=== PATIENT | male | born 1930 | race Caucasian/White ===

== ENCOUNTER 2016-07-28 14:38 | Inpatient (IN) | payer MEDICARE, BC ==
[2016-07-28 13:32] LABS: ABG CO2 ARTERIAL 23 mmol/L (21-27); ARTERIAL BLD GAS O2 SATURATION 89 % (95-98); ARTERIAL BLOOD GAS PCO2 31 mmHg (32-45); ARTERIAL PO2 52 mmHg (70-100); BICARBONATE 22 mmol/L (21-28); BLOOD GAS BASE EXCESS -1 mM/L (-/+3); PH 7.46 Units (7.35-7.45)
[2016-07-28 13:55] LABS: URINE LEUKOCYTE ESTERASE NEGATIVE (NEG)
[2016-07-28 13:56] LABS: URINE APPEARANCE CLEAR; URINE BILIRUBIN NEGATIVE (NEG); URINE BLOOD NEGATIVE (NEG); URINE COLOR YELLOW; URINE GLUCOSE (UA) MODERATE (NEG); URINE KETONE NEGATIVE (NEG); URINE NITRITE NEGATIVE (NEG); URINE SPECIFIC GRAVITY 1.018 (1.003-1.030)
[2016-07-28 13:57] LABS: BASO % 0.4 % (0-2); EOS % 2.2 % (0-7); EOSINOPHIL ABSOLUTE COUNT 0.2 tho/cmm (0.0-0.7); HCT-HEMATOCRIT 38.5 % (36.0-53.5); HGB-HEMOGLOBIN 12.4 gm/dl (13.5-17.0); IMMATURE GRANULOCYTES ABSOLUTE 0.03 tho/cmm (0-0.03); IMMATURE GRANULOCYTES PERCENT 0.4 % (0-0.3); LYMPH % 10.5 % (20-45); LYMPH ABSOLUTE COUNT 0.8 tho/cmm (0.8-4.5); MCH (MEAN CORPUSCULAR HGB) 31.7 pg (28.0-32.0); MCHC MEAN CORPUSCULAR HGB CONC 32.2 % (32.0-36.0); MCV (MEAN CELL VOLUME) 98.5 fl (82.0-96.0); MEAN PLATELET VOLUME 11.7 cmc (9.4-12.4); MONO % 13.3 % (0-12); NEUTROPHIL ABSOLUTE COUNT 5.5 tho/cmm (1.6-8.0); NEUTROPHIL-AUTOMATED 5.5 tho/cmm (1.6-8.0); NEUTROPHILS % 73.2 % (40-80); PLATELET COUNT 147 tho/cmm (150-450); RED BLOOD COUNT 3.91 mil/cmm (4.40-5.70); RED CELL DISTRIBUTION WIDTH 13.7 % (12.4-16.4); WHITE BLOOD COUNT 7.4 tho/cmm (4.0-10.0)
[2016-07-28 14:02] LABS: INR 2.4 INR (0.9-1.1); PROTHROMBIN TIME 28.4 SECONDS (9.0-13.6)
[2016-07-28 14:04] LABS: URINE PROT SULFOSALICYLIC ACID NEGATIVE (NEG)
[2016-07-28 14:14] LABS: ALB/GLOB RATIO 0.8 (0.8-2.0); ALBUMIN 3.6 g/dl (3.5-5.0); ALKALINE PHOSPHATASE 68 U/L (33-138); ALT/SGPT 22 U/L (12-78); ANION GAP 14 mmol/L (0-20); AST/SGOT 18 U/L (10-40); BILIRUBIN,TOTAL 0.5 mg/dl (0.0-1.5); BLOOD UREA NITROGEN 40 mg/dl (6-24); CALCIUM 9.4 mg/dl (8.5-10.5); CARBON DIOXIDE-VENOUS 27 mmol/L (22-32); CHLORIDE 109 mmol/l (96-110); CREATININE 2.15 mg/dl (0.60-1.30); GLUCOSE 256 mg/dL (70-110); POTASSIUM 4.9 mmol/L (3.7-5.1); SODIUM 145 mmol/L (135-145); eGFR VALUE FOR BLACK 36 mL/Min
[2016-07-28 14:35] LABS: PROCALCITONIN <0.05 ng/ml (0.05-0.09)
[~2016-07-28 14:38] MED LIST: ACETAMINOPHEN500 M5 PO; ADVAIR 50028 BLISTE1 PO; ALDACTONE25 M1 PO; ARICEPT10 M2 PO; ASPIR 8181 M1 PO; ATENOLOL25 MG; BUSPAR5 MG PO; BUSPIRONE HCL7.5 M1 PO; BYSTOLIC5 M1 PO; CEFDINIR300 M1 PO; CLARITIN10 MG; COUMADIN5 M2 PO; COUMADIN5 MG; COZAAR50 MG; DEMADEX20 M1 PO; DEMADEX20 MG; FEROSUL325 MG PO; FISH OIL; FISH OIL 1,2001 EAC5 PO; FLOMAX0.4 M1 PO; HUMALOG100 U/ML; HUMALOG100 UNIT/1 SC; HYDRALAZINE HCL50 M1 PO; IMDUR30 MG; IPRAT-ALBUT 0.5-3 ML INH; ISOSORBIDE MONO30 M4 PO; LANTUS SOL100 UNIT/1 SC; LORTAB 5-500 T1 EAC1 PO; LORTAB 5/5001 EA PO; LYRICA50 MG/CAP PO; MAXAIR AUTOHALE14 GM; NIZORAL120 M1 TP; NORVASC2.5 MG; POTASSIUM CHLO20 ME3 PO; PRILOSEC; PRILOSEC OTC20 M1 PO; PROSCAR5 M1 PO; PROSCAR5 MG; SENIOR TABS1 EACH PO; SENOKOT8.6 MG PO; STOOL SOFTENER100 M2 PO; TORSEMIDE20 M1 PO; TRAMADOL-ACETA1 EAC1 PO; ULTRAM; ULTRAM50 MG PO; VENTOLIN HFA18 G2 PO; VITAMIN D31000 UNI3 PO; ZAROXOLYN5 MG; ZOCOR20 M1 PO; ZOCOR40 MG; ZYRTEC10 M3 PO
[2016-07-28 16:13] LABS: ABG CO2 ARTERIAL 24 mmol/L (21-27); ARTERIAL BLD GAS O2 SATURATION 93 % (95-98); ARTERIAL BLOOD GAS PCO2 34 mmHg (32-45); BICARBONATE 23 mmol/L (21-28); BLOOD GAS BASE EXCESS 0 mM/L (-/+3); PH 7.45 Units (7.35-7.45)
[2016-07-28 16:14] LABS: ARTERIAL PO2 62 mmHg (70-100)
[2016-07-29 06:05] LABS: HCT-HEMATOCRIT 36.8 % (36.0-53.5); HGB-HEMOGLOBIN 11.9 gm/dl (13.5-17.0); IMMATURE GRANULOCYTES ABSOLUTE 0.01 tho/cmm (0-0.03); IMMATURE GRANULOCYTES PERCENT 0.2 % (0-0.3); LYMPH % 12.3 % (20-45); LYMPH ABSOLUTE COUNT 0.7 tho/cmm (0.8-4.5); MCH (MEAN CORPUSCULAR HGB) 31.5 pg (28.0-32.0); MCHC MEAN CORPUSCULAR HGB CONC 32.3 % (32.0-36.0); MCV (MEAN CELL VOLUME) 97.4 fl (82.0-96.0); MEAN PLATELET VOLUME 11.3 cmc (9.4-12.4); MONOCYTE ABSOLUTE COUNT 0.1 tho/cmm (0.0-1.2); NEUTROPHIL ABSOLUTE COUNT 5.1 tho/cmm (1.6-8.0); NEUTROPHIL-AUTOMATED 5.1 tho/cmm (1.6-8.0); NEUTROPHILS % 85.5 % (40-80); PLATELET COUNT 145 tho/cmm (150-450); RED BLOOD COUNT 3.78 mil/cmm (4.40-5.70); RED CELL DISTRIBUTION WIDTH 13.6 % (12.4-16.4)
[2016-07-29 06:21] LABS: INR 2.2 INR (0.9-1.1); PROTHROMBIN TIME 25.6 SECONDS (9.0-13.6)
[2016-07-29 06:26] LABS: ALB/GLOB RATIO 0.7 (0.8-2.0); ALBUMIN 3.1 g/dl (3.5-5.0); ALKALINE PHOSPHATASE 55 U/L (33-138); ALT/SGPT 17 U/L (12-78); ANION GAP 13 mmol/L (0-20); AST/SGOT 16 U/L (10-40); BILIRUBIN,TOTAL 0.4 mg/dl (0.0-1.5); BLOOD UREA NITROGEN 43 mg/dl (6-24); CARBON DIOXIDE-VENOUS 26 mmol/L (22-32); CHLORIDE 110 mmol/l (96-110); CREATININE 2.11 mg/dl (0.60-1.30); GLUCOSE 256 mg/dL (70-110); POTASSIUM 4.3 mmol/L (3.7-5.1); SODIUM 145 mmol/L (135-145); eGFR VALUE FOR BLACK 36 mL/Min
[2016-07-30 06:32] LABS: BASO % 0.1 % (0-2); IMMATURE GRANULOCYTES ABSOLUTE 0.02 tho/cmm (0-0.03); IMMATURE GRANULOCYTES PERCENT 0.2 % (0-0.3); LYMPH % 7.4 % (20-45); LYMPH ABSOLUTE COUNT 0.8 tho/cmm (0.8-4.5); MCH (MEAN CORPUSCULAR HGB) 31.7 pg (28.0-32.0); MCHC MEAN CORPUSCULAR HGB CONC 32.4 % (32.0-36.0); MCV (MEAN CELL VOLUME) 97.6 fl (82.0-96.0); MEAN PLATELET VOLUME 11.9 cmc (9.4-12.4); MONOCYTE ABSOLUTE COUNT 0.7 tho/cmm (0.0-1.2); NEUTROPHIL ABSOLUTE COUNT 9.7 tho/cmm (1.6-8.0); NEUTROPHIL-AUTOMATED 9.7 tho/cmm (1.6-8.0); NEUTROPHILS % 86.3 % (40-80); PLATELET COUNT 143 tho/cmm (150-450); RED BLOOD COUNT 3.79 mil/cmm (4.40-5.70); RED CELL DISTRIBUTION WIDTH 13.5 % (12.4-16.4)
[2016-07-30 06:41] LABS: INR 2.1 INR (0.9-1.1); PROTHROMBIN TIME 25.2 SECONDS (9.0-13.6)
[2016-07-30 06:44] LABS: ALB/GLOB RATIO 0.6 (0.8-2.0); ALBUMIN 2.9 g/dl (3.5-5.0); ALKALINE PHOSPHATASE 73 U/L (33-138); ALT/SGPT 17 U/L (12-78); ANION GAP 16 mmol/L (0-20); AST/SGOT 19 U/L (10-40); BILIRUBIN,TOTAL 0.2 mg/dl (0.0-1.5); CALCIUM 8.4 mg/dl (8.5-10.5); CARBON DIOXIDE-VENOUS 24 mmol/L (22-32); CHLORIDE 104 mmol/l (96-110); MAGNESIUM 2.6 mg/dl (1.3-2.6); POTASSIUM 4.6 mmol/L (3.7-5.1); SODIUM 139 mmol/L (135-145); eGFR VALUE FOR BLACK 26 mL/Min
[2016-07-30 07:03] LABS: WHITE BLOOD COUNT 11.2 tho/cmm (4.0-10.0)
[2016-07-30 07:06] LABS: BLOOD UREA NITROGEN 77 mg/dl (6-24); CREATININE 2.82 mg/dl (0.60-1.30); GLUCOSE 397 mg/dL (70-110)
[2016-07-31 05:22] LABS: HCT-HEMATOCRIT 35.4 % (36.0-53.5); HGB-HEMOGLOBIN 11.7 gm/dl (13.5-17.0); IMMATURE GRANULOCYTES ABSOLUTE 0.02 tho/cmm (0-0.03); IMMATURE GRANULOCYTES PERCENT 0.2 % (0-0.3); LYMPH % 6.1 % (20-45); LYMPH ABSOLUTE COUNT 0.7 tho/cmm (0.8-4.5); MCH (MEAN CORPUSCULAR HGB) 31.6 pg (28.0-32.0); MCHC MEAN CORPUSCULAR HGB CONC 33.1 % (32.0-36.0); MCV (MEAN CELL VOLUME) 95.7 fl (82.0-96.0); MEAN PLATELET VOLUME 11.4 cmc (9.4-12.4); MONO % 5.5 % (0-12); MONOCYTE ABSOLUTE COUNT 0.7 tho/cmm (0.0-1.2); NEUTROPHIL ABSOLUTE COUNT 10.5 tho/cmm (1.6-8.0); NEUTROPHIL-AUTOMATED 10.5 tho/cmm (1.6-8.0); NEUTROPHILS % 88.2 % (40-80); PLATELET COUNT 151 tho/cmm (150-450); RED CELL DISTRIBUTION WIDTH 13.4 % (12.4-16.4); WHITE BLOOD COUNT 11.9 tho/cmm (4.0-10.0)
[2016-07-31 05:27] LABS: INR 2.6 INR (0.9-1.1); PROTHROMBIN TIME 31.5 SECONDS (9.0-13.6)
[2016-07-31 05:40] LABS: ALB/GLOB RATIO 0.7 (0.8-2.0); ALBUMIN 3.1 g/dl (3.5-5.0); ALKALINE PHOSPHATASE 64 U/L (33-138); ALT/SGPT 21 U/L (12-78); ANION GAP 15 mmol/L (0-20); AST/SGOT 16 U/L (10-40); BILIRUBIN,TOTAL 0.3 mg/dl (0.0-1.5); BLOOD UREA NITROGEN 84 mg/dl (6-24); CALCIUM 8.4 mg/dl (8.5-10.5); CARBON DIOXIDE-VENOUS 26 mmol/L (22-32); CHLORIDE 104 mmol/l (96-110); CREATININE 2.72 mg/dl (0.60-1.30); GLUCOSE 308 mg/dL (70-110); POTASSIUM 4.6 mmol/L (3.7-5.1); SODIUM 140 mmol/L (135-145); eGFR VALUE FOR BLACK 27 mL/Min
[2016-08-01 05:31] LABS: PROTHROMBIN TIME 35.8 SECONDS (9.0-13.6)
[2016-08-01 05:48] LABS: ALB/GLOB RATIO 0.7 (0.8-2.0); ALBUMIN 3.1 g/dl (3.5-5.0); ALKALINE PHOSPHATASE 69 U/L (33-138); ALT/SGPT 23 U/L (12-78); ANION GAP 14 mmol/L (0-20); AST/SGOT 10 U/L (10-40); BILIRUBIN,TOTAL 0.3 mg/dl (0.0-1.5); BLOOD UREA NITROGEN 86 mg/dl (6-24); CALCIUM 8.8 mg/dl (8.5-10.5); CARBON DIOXIDE-VENOUS 27 mmol/L (22-32); CHLORIDE 106 mmol/l (96-110); CREATININE 2.61 mg/dl (0.60-1.30); GLUCOSE 340 mg/dL (70-110); POTASSIUM 4.7 mmol/L (3.7-5.1); SODIUM 142 mmol/L (135-145); eGFR VALUE FOR BLACK 28 mL/Min
[2016-08-02 05:43] LABS: INR 3.1 INR (0.9-1.1); PROTHROMBIN TIME 37.6 SECONDS (9.0-13.6)
[2016-08-02 12:55] LABS: ANION GAP 15 mmol/L (0-20); BLOOD UREA NITROGEN 88 mg/dl (6-24); CALCIUM 8.4 mg/dl (8.5-10.5); CARBON DIOXIDE-VENOUS 27 mmol/L (22-32); CHLORIDE 101 mmol/l (96-110); CREATININE 2.57 mg/dl (0.60-1.30); GLUCOSE 425 mg/dL (70-110); POTASSIUM 4.4 mmol/L (3.7-5.1); SODIUM 139 mmol/L (135-145); eGFR VALUE FOR BLACK 29 mL/Min
[2016-08-03 05:41] LABS: BASO % 0.1 % (0-2); HCT-HEMATOCRIT 39.1 % (36.0-53.5); HGB-HEMOGLOBIN 12.9 gm/dl (13.5-17.0); IMMATURE GRANULOCYTES ABSOLUTE 0.05 tho/cmm (0-0.03); IMMATURE GRANULOCYTES PERCENT 0.4 % (0-0.3); LYMPH % 7.6 % (20-45); LYMPH ABSOLUTE COUNT 0.9 tho/cmm (0.8-4.5); MCH (MEAN CORPUSCULAR HGB) 31.5 pg (28.0-32.0); MCV (MEAN CELL VOLUME) 95.4 fl (82.0-96.0); MONO % 7.8 % (0-12); MONOCYTE ABSOLUTE COUNT 0.9 tho/cmm (0.0-1.2); NEUTROPHIL ABSOLUTE COUNT 9.8 tho/cmm (1.6-8.0); NEUTROPHIL-AUTOMATED 9.8 tho/cmm (1.6-8.0); NEUTROPHILS % 84.1 % (40-80); PLATELET COUNT 156 tho/cmm (150-450); RED CELL DISTRIBUTION WIDTH 13.3 % (12.4-16.4); WHITE BLOOD COUNT 11.7 tho/cmm (4.0-10.0)
[2016-08-03 05:41] LABS: INR 2.9 INR (0.9-1.1); PROTHROMBIN TIME 35.2 SECONDS (9.0-13.6)
[2016-08-03 06:33] LABS: ANION GAP 13 mmol/L (0-20); BLOOD UREA NITROGEN 90 mg/dl (6-24); CALCIUM 8.3 mg/dl (8.5-10.5); CARBON DIOXIDE-VENOUS 27 mmol/L (22-32); CHLORIDE 103 mmol/l (96-110); CREATININE 2.33 mg/dl (0.60-1.30); GLUCOSE 288 mg/dL (70-110); POTASSIUM 4.3 mmol/L (3.7-5.1); SODIUM 139 mmol/L (135-145); eGFR VALUE FOR BLACK 32 mL/Min
[2016-08-03] MEDS ORDERED: PREDNISONE10 M1 PO (16:18)
[2016-08-03] MEDS ORDERED: TYLENOL325 M2 PO ×2 (16:20→16:21)
[2016-08-03] MEDS ORDERED: MUCINEX600 M1 PO (16:22)
[2016-08-03] MEDS ORDERED: MIRALAX17 G2 PO (16:23)
== END 2016-08-03 17:20 | disposition home health service (06) | DRG 190 ==
LOC: EDMED 14:38 → EMR2 15:24 → PCUB 19:35
PROVIDERS: Emergency Medicine; Internal Medicine; Physician Assistant; ADMIT Internal Medicine Critical Care Medicine
PROC: 5A09557 Assistance with Respiratory Ventilation, Greater than 96 Consecutive Hours, Continuous Positive Airway Pressure (ICD-10-PCS; principal; 2016-07-28)
DX: J44.0 Chronic obstructive pulmonary disease with (acute) lower respiratory infection (principal); J15.29 Pneumonia due to other staphylococcus; J96.01 Acute respiratory failure with hypoxia; I50.43 Acute on chronic combined systolic (congestive) and diastolic (congestive) heart failure; N18.4 Chronic kidney disease, stage 4 (severe); N17.9 Acute kidney failure, unspecified; I48.2 Chronic atrial fibrillation; G62.9 Polyneuropathy, unspecified; F03.90 Unspecified dementia, unspecified severity, without behavioral disturbance, psychotic disturbance, mood disturbance, and anxiety; I13.0 Hypertensive heart and chronic kidney disease with heart failure and stage 1 through stage 4 chronic kidney disease, or unspecified chronic kidney disease; I25.5 Ischemic cardiomyopathy; E11.9 Type 2 diabetes mellitus without complications; I25.10 Atherosclerotic heart disease of native coronary artery without angina pectoris; E66.9 Obesity, unspecified; J44.1 Chronic obstructive pulmonary disease with (acute) exacerbation; G47.33 Obstructive sleep apnea (adult) (pediatric); R29.6 Repeated falls; G47.30 Sleep apnea, unspecified; M19.90 Unspecified osteoarthritis, unspecified site; Z66 Do not resuscitate; Z95.1 Presence of aortocoronary bypass graft; Z79.01 Long term (current) use of anticoagulants; Z68.39 Body mass index [BMI] 39.0-39.9, adult; Z91.81 History of falling
CPT/HCPCS: J0456; J0696; J1815; J1940; J2920; J2930; J3370; J7030; J7050